=== PATIENT | male | born 1970 | race Caucasian/White ===

== ENCOUNTER 2017-10-26 16:08 | Emergency (ER) | payer SELFPAY ==
[~2017-10-26] VITALS: Ht 175.3 cm; Wt 86.4 kg
[2017-10-26 16:24] LABS: GLUCOSE,POINT OF CARE 270 MG/DL (70-110)
[2017-10-26 18:46] LABS: BASOPHILS % (AUTO) 0.8 % (0.0-2.0); EOSINOPHILS % (AUTO) 0.9 % (1.0-6.0); HEMATOCRIT 39.6 % (41-53); HEMOGLOBIN 13.5 g/dL (13.5-17.5); LYMPHOCYTES # (AUTO) 1.1 K/uL (1.0-4.8); LYMPHOCYTES % (AUTO) 12.8 % (22.0-44.0); MEAN CORPUSCULAR HEMOGLOBIN 28.6 pg (26.0-34.0); MEAN CORPUSCULAR VOLUME 84 fL (80-100); MONOCYTES # (AUTO) 0.6 K/uL (0.1-1.0); MONOCYTES % (AUTO) 6.3 % (2.0-9.0); NEUTROPHILS % (AUTO) 79.2 % (40.0-70.0); PLATELET COUNT (AUTO) 209 K/uL (150-450); RED BLOOD CELL COUNT(AUTO) 4.71 MIL/uL (4.50-5.90); RED CELL DISTRIBUTION WIDTH 14.1 % (11.5-14.5)
[2017-10-26 18:56] LABS: ANION GAP 8 mmol/L (8-16); CALCIUM, TOTAL 8.9 mg/dL (8.8-10.5); CARBON DIOXIDE 27 mmol/L (22-29); CHLORIDE 101 mmol/L (98-107); CREATININE 1.24 mg/dL (0.60-1.30); GLOMERULAR FILTR. RATE CALC > 60 mL/min (>60); GLUCOSE,RANDOM 309 mg/dL (70-110); POTASSIUM 4.5 mmol/L (3.5-5.1); SODIUM SERUM 136 mmol/L (136-145); UREA NITROGEN, BLOOD 20 mg/dL (7-18)
[2017-10-26 19:07] VITALS: BP 121/70
[2017-10-26 19:13] LABS: ALANINE AMINOTRANSFERASE 27 U/L (12-78); ALBUMIN 2.5 g/dL (3.4-5.0); ALKALINE PHOSPHATASE 103 U/L (46-116); C-REACTIVE PROTEIN QUANT 16.74 mg/dL (0.00-0.30)
[2017-10-26 20:17] LABS: ASPARTATE AMINOTRANSFERASE 14 U/L (15-37); BILIRUBIN,TOTAL 0.6 mg/dL (0.1-1.0)
[2017-10-26 20:19] LABS: ERYTHROCYTE SEDIMENTATION RATE 58 MM/HR (0-15)
== END 2017-10-26 20:51 | disposition home or self-care (01) ==
LOC: EMS 16:10
DX: L03.031 Cellulitis of right toe (principal); E11.9 Type 2 diabetes mellitus without complications
CPT/HCPCS: 85651; 86140; 99285

== ENCOUNTER 2022-01-31 17:37 | Inpatient (IN) | payer MEDICAID, OTHER ==
[~2022-01-31] VITALS: Ht 167.6 cm; Wt 107.5 kg
[~2022-01-31 17:37] MED LIST: CEPH-558 PO; CLIN300C58 PO; METF-1211 PO
[2022-01-31] MEDS ORDERED: INSULIN SQ (17:54)
[2022-01-31] MEDS ORDERED: KIDNEY MEDICATION PO (17:54)
[2022-01-31] MEDS ORDERED: BLOOD PRESSURE MED PO (17:54)
[2022-01-31 19:49] LABS: BASOPHILS % (AUTO) 1.2 % (0.0-2.0); EOSINOPHILS % (AUTO) 3.3 % (1.0-6.0); HEMATOCRIT 35.1 % (41-53); HEMOGLOBIN 11.4 g/dL (13.5-17.5); LYMPHOCYTES # (AUTO) 1.9 K/uL (1.0-4.8); LYMPHOCYTES % (AUTO) 20.2 % (22.0-44.0); MEAN CORPUSCULAR HEMOGLOBIN 28.7 pg (26.0-34.0); MEAN CORPUSCULAR HGB CONC 32.6 G/dL (31.0-37.0); MEAN CORPUSCULAR VOLUME 88 fL (80-100); MONOCYTES # (AUTO) 0.8 K/uL (0.1-1.0); MONOCYTES % (AUTO) 8.9 % (2.0-9.0); NEUTROPHILS # (AUTO) 6.1 K/uL (1.8-7.7); NEUTROPHILS % (AUTO) 66.4 % (40.0-70.0); PLATELET COUNT (AUTO) 293 K/uL (150-450); RED BLOOD CELL COUNT(AUTO) 3.99 MIL/uL (4.50-5.90); RED CELL DISTRIBUTION WIDTH 15.3 % (11.5-14.5)
[2022-01-31 19:58] LABS: CALCIUM, TOTAL 8.9 mg/dL (8.8-10.5); CREATININE 4.12 mg/dL (0.60-1.30); POTASSIUM 4.7 mmol/L (3.5-5.1)
[2022-01-31] MEDS ORDERED: 0.9% SODIUM CHLORIDE 10 ML SYRINGE IVP PRN (20:00)
[2022-01-31] MEDS ORDERED: ACETAMINOPHEN 325 MG TABLET PO PRN ×2 (20:00→20:15)
[2022-01-31] MEDS ORDERED: ONDANSETRON HCL 4 MG/2 ML VIAL IVP PRN ×2 (20:00→20:15)
[2022-01-31 20:04] LABS: BILIRUBIN,TOTAL 0.1 mg/dL (0.1-1.0); C-REACTIVE PROTEIN QUANT 3.6 mg/dL (0.00-0.30); TOTAL PROTEIN, SERUM 7.3 g/dL (6.4-8.2)
[2022-01-31 20:06] LABS: LACTIC ACID 0.9 mmol/L (0.4-2.0)
[2022-01-31] MEDS ORDERED: ZOLPIDEM TARTRATE 5 MG TABLET PO PRN (20:15)
[2022-01-31] MEDS ORDERED: DEXTROSE 50%-WATER 25 GM/50 ML SYRINGE IVP PRN (20:15)
[2022-01-31] MEDS ORDERED: SODIUM CHLORIDE 0.9% 1,000 ML IV ONE (20:15)
[2022-01-31] MEDS ORDERED: MAGNESIUM HYDROXIDE SUSPENSION 30 ML UDCUP PO PRN (20:15)
[2022-01-31] MEDS ORDERED: CloNIDine HCL 0.1 MG TABLET PO PRN (20:15)
[2022-01-31] MEDS ORDERED: BISACODYL 10 MG RECTAL RECTAL SUPPOSITORY PR PRN (20:15)
[2022-01-31] MEDS ORDERED: MORPHINE SULFATE 2 MG/ML SYRINGE IVP PRN (20:15)
[2022-01-31] MEDS ORDERED: VANCOMYCIN HCL 1.5 GM in DEXTROSE 5%-WATER 250 ML IV ONE (20:30)
[2022-01-31 20:53] LABS: ERYTHROCYTE SEDIMENTATION RATE 135 MM/HR (0-15)
[2022-01-31] MEDS: DOCUSATE SODIUM 100 MG CAPSULE PO SCH (21:00)
[2022-01-31] MEDS ORDERED: VANCOMYCIN HCL 1 GM in DEXTROSE 5%-WATER 250 ML IV PRN (21:30)
[2022-01-31 22:29] LABS: COVID AG,FIA SOURCE NASOPHARYNGEAL
[2022-02-01 06:43] LABS: BASOPHILS % (AUTO) 0.8 % (0.0-2.0); HEMATOCRIT 35.3 % (41-53); HEMOGLOBIN 11.3 g/dL (13.5-17.5); LYMPHOCYTES # (AUTO) 1.6 K/uL (1.0-4.8); LYMPHOCYTES % (AUTO) 18.7 % (22.0-44.0); MEAN CORPUSCULAR HEMOGLOBIN 28.3 pg (26.0-34.0); MEAN CORPUSCULAR HGB CONC 31.9 G/dL (31.0-37.0); MEAN CORPUSCULAR VOLUME 89 fL (80-100); MONOCYTES # (AUTO) 0.6 K/uL (0.1-1.0); MONOCYTES % (AUTO) 7.8 % (2.0-9.0); NEUTROPHILS # (AUTO) 5.8 K/uL (1.8-7.7); NEUTROPHILS % (AUTO) 69.7 % (40.0-70.0); PLATELET COUNT (AUTO) 265 K/uL (150-450); RED BLOOD CELL COUNT(AUTO) 3.99 MIL/uL (4.50-5.90)
[2022-02-01 06:59] LABS: CALCIUM, TOTAL 8.7 mg/dL (8.8-10.5); CREATININE 3.99 mg/dL (0.60-1.30); POTASSIUM 4.8 mmol/L (3.5-5.1)
[2022-02-01] MEDS: AmLODIPine BESYLATE 10 MG TABLET PO SCH (07:22)
[2022-02-01] MEDS: PANTOPRAZOLE SODIUM 40 MG DR TABLET PO SCH (07:24)
[2022-02-01] MEDS: HEPARIN SODIUM,PORCINE 5,000 UNITS/ML VIAL SQ SCH ×4 (07:25→23:44)
[2022-02-01] MEDS ORDERED: VANCOMYCIN HCL 1.25 GM in DEXTROSE 5%-WATER 250 ML IV ONE (08:00)
[2022-02-01] MEDS: DOCUSATE SODIUM 100 MG CAPSULE PO SCH ×2 (08:28→20:38)
[2022-02-01 10:24] VITALS: BP 148/78
[2022-02-01] MEDS: INSULIN LISPRO 100 UNITS/ML SQ PRN ×3 (12:07→20:47)
[2022-02-01] MEDS ORDERED: GLIP10TA9 PO (13:43)
[2022-02-01] MEDS ORDERED: INSU100I15 SQ (13:43)
[2022-02-01] MEDS ORDERED: LISI10TA24 PO (13:43)
[2022-02-01] MEDS ORDERED: ROSU20TA73 PO (13:43)
[2022-02-01] MEDS ORDERED: AMLO5TAB66 PO (13:43)
[2022-02-01] MEDS ORDERED: FERR325T23 PO (13:43)
[2022-02-01] MEDS ORDERED: INSU3INS3 SQ (13:43)
[2022-02-01] MEDS ORDERED: DAPA10TA PO (13:43)
[2022-02-01] MEDS ORDERED: DULA0.75 SQ (13:43)
[2022-02-01 15:49] VITALS: BP 127/63
[2022-02-01 16:51] LABS: GLUCOMETER DEV NAME(LOC) 6N.2B; GLUCOSE,POINT OF CARE 268 MG/DL (70-110)
[2022-02-01 19:41] LABS: GLUCOMETER DEV NAME(LOC) 6N.1; GLUCOSE,POINT OF CARE 164 MG/DL (70-110)
[2022-02-01 20:49] VITALS: BP 130/89
[2022-02-02 04:45] VITALS: BP 136/85
[2022-02-02 05:31] LABS: BASOPHILS % (AUTO) 0.9 % (0.0-2.0); EOSINOPHILS % (AUTO) 3.8 % (1.0-6.0); HEMATOCRIT 33.4 % (41-53); HEMOGLOBIN 10.6 g/dL (13.5-17.5); LYMPHOCYTES # (AUTO) 2.1 K/uL (1.0-4.8); LYMPHOCYTES % (AUTO) 31.9 % (22.0-44.0); MEAN CORPUSCULAR HEMOGLOBIN 27.8 pg (26.0-34.0); MEAN CORPUSCULAR HGB CONC 31.8 G/dL (31.0-37.0); MEAN CORPUSCULAR VOLUME 88 fL (80-100); MONOCYTES # (AUTO) 0.5 K/uL (0.1-1.0); MONOCYTES % (AUTO) 7.7 % (2.0-9.0); NEUTROPHILS # (AUTO) 3.6 K/uL (1.8-7.7); NEUTROPHILS % (AUTO) 55.7 % (40.0-70.0); PLATELET COUNT (AUTO) 275 K/uL (150-450); RED BLOOD CELL COUNT(AUTO) 3.82 MIL/uL (4.50-5.90); RED CELL DISTRIBUTION WIDTH 15.2 % (11.5-14.5)
[2022-02-02 05:38] LABS: CALCIUM, TOTAL 8.5 mg/dL (8.8-10.5); CREATININE 3.85 mg/dL (0.60-1.30); POTASSIUM 4.6 mmol/L (3.5-5.1)
[2022-02-02] MEDS: INSULIN LISPRO 100 UNITS/ML SQ PRN ×2 (06:19→20:08)
[2022-02-02 06:46] LABS: GLUCOMETER DEV NAME(LOC) 6N.2B; GLUCOSE,POINT OF CARE 228 MG/DL (70-110)
[2022-02-02 06:46] LABS: GLUCOMETER DEV NAME(LOC) 6N.2B; GLUCOSE,POINT OF CARE 145 MG/DL (70-110)
[2022-02-02 07:34] VITALS: BP 142/91
[2022-02-02] MEDS: HEPARIN SODIUM,PORCINE 5,000 UNITS/ML VIAL SQ SCH ×3 (08:00→23:53)
[2022-02-02] MEDS: DOCUSATE SODIUM 100 MG CAPSULE PO SCH ×2 (08:07→21:26)
[2022-02-02] MEDS: PANTOPRAZOLE SODIUM 40 MG DR TABLET PO SCH (08:08)
[2022-02-02] MEDS: AmLODIPine BESYLATE 10 MG TABLET PO SCH (08:08)
[2022-02-02 08:42] LABS: APPEARANCE,URINE CLEAR (CLEAR); BILIRUBIN,URINE NEGATIVE (NEGATIVE); GLUCOSE, URINE (UA) 300-500 mg/dL (NEGATIVE); KETONES,URINE NEGATIVE (NEGATIVE); LEUKOCYTE ESTERASE ,URINE NEGATIVE (NEGATIVE); NITRATE,URINE NEGATIVE (NEGATIVE); OCCULT BLOOD,URINE SMALL (NEGATIVE); PH,URINE 6.5 (5.0-8.0); PROTEIN,URINE 300-600,SEE CONFIRM mg/dL (NEGATIVE); SPECIFIC GRAVITIY, URINE 1.012 (1.003-1.030); UROBILINOGEN,URINE <=1.0 mg/dL (<=1.0)
[2022-02-02 09:14] LABS: SULFOSALICYLIC ACID,URINE 3+ (Negative)
[2022-02-02 09:15] LABS: BACTERIA,URINE None Seen /HPF (None Seen); FINE GRANULAR CASTS,URINE 0-2 /LPF (None Seen); HYALINE CASTS, URINE 0-2 /LPF (None Seen); WBC,URINE 0-2 /HPF (0-5)
[2022-02-02] MEDS ORDERED: LIDOCAINE/PF 1% 30 ML VIAL ONE (11:02)
[2022-02-02] MEDS ORDERED: BUPIVACAINE HCL/PF 0.5% 30 ML VIAL ONE (11:02)
[2022-02-02] MEDS ORDERED: SODIUM CHLORIDE 0.9% 1,000 ML IV ONE ×2 (12:15→13:00)
[2022-02-02] MEDS ORDERED: VANCOMYCIN HCL 1 GM/VIAL ONE (12:19)
[2022-02-02] MEDS ORDERED: SODIUM CL IRRIG SOLN BAG 3,000 ML IRRIG ONE (12:19)
[2022-02-02] MEDS ORDERED: SODIUM CHLORIDE 0.9% 1,000 ML ONE (12:42)
[2022-02-02 12:51] LABS: GLUCOMETER DEV NAME(LOC) 6N.2B; GLUCOSE,POINT OF CARE 165 MG/DL (70-110)
[2022-02-02 15:33] VITALS: BP 151/96
[2022-02-02 19:16] VITALS: BP 151/94
[2022-02-03 01:51] LABS: GLUCOMETER DEV NAME(LOC) 6N.2B; GLUCOSE,POINT OF CARE 131 MG/DL (70-110)
[2022-02-03 01:51] LABS: GLUCOMETER DEV NAME(LOC) 6N.2B; GLUCOSE,POINT OF CARE 236 MG/DL (70-110)
[2022-02-03 04:10] VITALS: BP 121/71
[2022-02-03] MEDS ORDERED: PROPOFOL 1% 20 ML VIAL IVP ONE (05:13)
[2022-02-03] MEDS ORDERED: FentaNYL CITRATE PF 100 MCG/2 ML VIAL IVP ONE (05:13)
[2022-02-03] MEDS ORDERED: ONDANSETRON HCL 4 MG/2 ML VIAL IVP ONE (05:13)
[2022-02-03] MEDS ORDERED: MIDAZOLAM HCL 2 MG/2 ML VIAL IVP ONE (05:13)
[2022-02-03] MEDS ORDERED: LIDOCAINE/PF 2% 5 ML VIAL IM ONE (05:13)
[2022-02-03 05:59] LABS: CALCIUM, TOTAL 8.4 mg/dL (8.8-10.5); CREATININE 3.63 mg/dL (0.60-1.30); POTASSIUM 4.8 mmol/L (3.5-5.1)
[2022-02-03 06:21] LABS: GLUCOMETER DEV NAME(LOC) 6N.2B; GLUCOSE,POINT OF CARE 116 MG/DL (70-110)
[2022-02-03 07:35] VITALS: BP 154/84
[2022-02-03] MEDS ORDERED: VANCOMYCIN 1GM/WATER(PEG/NADA) 200 ML IV ONE (08:00)
[2022-02-03] MEDS: DOCUSATE SODIUM 100 MG CAPSULE PO SCH ×2 (08:04→21:00)
[2022-02-03] MEDS: PANTOPRAZOLE SODIUM 40 MG DR TABLET PO SCH (08:04)
[2022-02-03] MEDS: AmLODIPine BESYLATE 10 MG TABLET PO SCH (08:04)
[2022-02-03] MEDS: HEPARIN SODIUM,PORCINE 5,000 UNITS/ML VIAL SQ SCH ×3 (08:04→23:34)
[2022-02-03] MEDS: INSULIN LISPRO 100 UNITS/ML SQ PRN ×3 (11:54→20:15)
[2022-02-03 13:21] LABS: GLUCOMETER DEV NAME(LOC) 6N.2B; GLUCOSE,POINT OF CARE 198 MG/DL (70-110)
[2022-02-03 21:06] LABS: GLUCOMETER DEV NAME(LOC) 6N.1; GLUCOSE,POINT OF CARE 189 MG/DL (70-110)
[2022-02-03 21:06] LABS: GLUCOMETER DEV NAME(LOC) 6N.1; GLUCOSE,POINT OF CARE 212 MG/DL (70-110)
[2022-02-04 06:52] LABS: CALCIUM, TOTAL 8.6 mg/dL (8.8-10.5); CREATININE 3.94 mg/dL (0.60-1.30); POTASSIUM 4.5 mmol/L (3.5-5.1)
[2022-02-04 07:11] LABS: GLUCOMETER DEV NAME(LOC) 6N.2B; GLUCOSE,POINT OF CARE 135 MG/DL (70-110)
[2022-02-04 07:23] VITALS: BP 136/82
[2022-02-04] MEDS: PANTOPRAZOLE SODIUM 40 MG DR TABLET PO SCH (09:14)
[2022-02-04] MEDS: DOCUSATE SODIUM 100 MG CAPSULE PO SCH ×2 (09:14→20:33)
[2022-02-04] MEDS: AmLODIPine BESYLATE 10 MG TABLET PO SCH (09:14)
[2022-02-04] MEDS: HEPARIN SODIUM,PORCINE 5,000 UNITS/ML VIAL SQ SCH ×2 (09:14→15:27)
[2022-02-04] MEDS: LEVOFLOXACIN 250 MG TABLET PO SCH (09:14)
[2022-02-04] MEDS: INSULIN LISPRO 100 UNITS/ML SQ PRN ×3 (12:17→20:36)
[2022-02-04 15:11] LABS: GLUCOMETER DEV NAME(LOC) 6N.2B; GLUCOSE,POINT OF CARE 241 MG/DL (70-110)
[2022-02-04 15:23] VITALS: BP 141/84
[2022-02-04 19:37] VITALS: BP 138/86
[2022-02-04 20:11] LABS: GLUCOMETER DEV NAME(LOC) 6N.1; GLUCOSE,POINT OF CARE 199 MG/DL (70-110)
[2022-02-04] MEDS: HYDROCODONE/ACETAMINOPHEN 5-325 MG TABLET PO PRN (20:33)
[2022-02-04 21:41] LABS: GLUCOMETER DEV NAME(LOC) 6N.1; GLUCOSE,POINT OF CARE 183 MG/DL (70-110)
[2022-02-05] MEDS: HEPARIN SODIUM,PORCINE 5,000 UNITS/ML VIAL SQ SCH ×3 (00:09→16:45)
[2022-02-05 03:47] VITALS: BP 130/82
[2022-02-05] MEDS: INSULIN LISPRO 100 UNITS/ML SQ PRN ×4 (05:49→20:24)
[2022-02-05 06:48] LABS: CALCIUM, TOTAL 8.7 mg/dL (8.8-10.5); CREATININE 4.03 mg/dL (0.60-1.30); POTASSIUM 4.8 mmol/L (3.5-5.1); VANCOMYCIN,RANDOM 17.2 mcg/mL (25.0-50.0)
[2022-02-05 07:46] LABS: GLUCOMETER DEV NAME(LOC) 6N.1; GLUCOSE,POINT OF CARE 145 MG/DL (70-110)
[2022-02-05 07:55] VITALS: BP 139/81
[2022-02-05] MEDS: LEVOFLOXACIN 250 MG TABLET PO SCH (08:12)
[2022-02-05] MEDS: PANTOPRAZOLE SODIUM 40 MG DR TABLET PO SCH (08:13)
[2022-02-05] MEDS: AmLODIPine BESYLATE 10 MG TABLET PO SCH (08:13)
[2022-02-05] MEDS: DOCUSATE SODIUM 100 MG CAPSULE PO SCH ×2 (08:13→20:20)
[2022-02-05] MEDS: HYDROCODONE/ACETAMINOPHEN 5-325 MG TABLET PO PRN (08:14)
[2022-02-05] MEDS ORDERED: VANCOMYCIN 1GM/WATER(PEG/NADA) 200 ML IV ONE (11:00)
[2022-02-05] MEDS: DEXTRAN 70 0.1%/HYPROMELL 0.3% 0.9 ML OPHTHALMIC SOLUTION [PF] OU SCH ×2 (13:56→20:20)
[2022-02-05 14:31] LABS: GLUCOMETER DEV NAME(LOC) 6N.2B; GLUCOSE,POINT OF CARE 206 MG/DL (70-110)
[2022-02-05 15:46] VITALS: BP 136/84
[2022-02-05 19:21] LABS: GLUCOMETER DEV NAME(LOC) 6N.2B; GLUCOSE,POINT OF CARE 204 MG/DL (70-110)
[2022-02-05 20:16] VITALS: BP 120/87
[2022-02-05 23:36] LABS: GLUCOMETER DEV NAME(LOC) 6N.2B; GLUCOSE,POINT OF CARE 200 MG/DL (70-110)
[2022-02-06] MEDS: HEPARIN SODIUM,PORCINE 5,000 UNITS/ML VIAL SQ SCH ×2 (00:13→09:06)
[2022-02-06 05:25] VITALS: BP 145/85
[2022-02-06] MEDS: INSULIN LISPRO 100 UNITS/ML SQ PRN ×2 (05:33→12:19)
[2022-02-06 06:02] LABS: CALCIUM, TOTAL 8.6 mg/dL (8.8-10.5); CREATININE 3.92 mg/dL (0.60-1.30); POTASSIUM 4.9 mmol/L (3.5-5.1)
[2022-02-06 07:26] LABS: GLUCOMETER DEV NAME(LOC) 6N.1; GLUCOSE,POINT OF CARE 186 MG/DL (70-110)
[2022-02-06 08:00] VITALS: BP 106/60
[2022-02-06] MEDS ORDERED: MULTIVITAMINS WITH MINERALS, THERAPEUTIC TABLET PO SCH (09:00)
[2022-02-06] MEDS: LEVOFLOXACIN 250 MG TABLET PO SCH (09:05)
[2022-02-06] MEDS: PANTOPRAZOLE SODIUM 40 MG DR TABLET PO SCH (09:06)
[2022-02-06] MEDS: DEXTRAN 70 0.1%/HYPROMELL 0.3% 0.9 ML OPHTHALMIC SOLUTION [PF] OU SCH (09:06)
[2022-02-06] MEDS: DOCUSATE SODIUM 100 MG CAPSULE PO SCH (09:06)
[2022-02-06] MEDS: AmLODIPine BESYLATE 10 MG TABLET PO SCH (09:06)
[2022-02-06] MEDS ORDERED: CLIN300C58 PO (09:43)
[2022-02-06 19:46] LABS: GLUCOMETER DEV NAME(LOC) 6N.2B; GLUCOSE,POINT OF CARE 231 MG/DL (70-110)
[2022-02-07] MEDS ORDERED: VANCOMYCIN 1GM/WATER(PEG/NADA) 200 ML IV SCH (08:00)
== END 2022-02-06 16:20 | disposition home health service (06) | DRG 380 ==
LOC: EMS 18:01 → 6N 02-01 09:48 → EMS 02-01 10:00
PROVIDERS: ADMIT Internal Medicine; ATTEND Internal Medicine
PROC: 0Y9M0ZZ Drainage of Right Foot, Open Approach (ICD-10-PCS; principal; 2022-02-02 13:55)
DX: E11.621 Type 2 diabetes mellitus with foot ulcer (principal); L97.519 Non-pressure chronic ulcer of other part of right foot with unspecified severity; N17.0 Acute kidney failure with tubular necrosis; L03.115 Cellulitis of right lower limb; D63.1 Anemia in chronic kidney disease; L02.611 Cutaneous abscess of right foot; E11.22 Type 2 diabetes mellitus with diabetic chronic kidney disease; E11.51 Type 2 diabetes mellitus with diabetic peripheral angiopathy without gangrene; I12.9 Hypertensive chronic kidney disease with stage 1 through stage 4 chronic kidney disease, or unspecified chronic kidney disease; N18.4 Chronic kidney disease, stage 4 (severe); Z20.822 Contact with and (suspected) exposure to COVID-19; E11.65 Type 2 diabetes mellitus with hyperglycemia; E66.01 Morbid (severe) obesity due to excess calories; Z89.422 Acquired absence of other left toe(s); Z79.84 Long term (current) use of oral hypoglycemic drugs; Z79.899 Other long term (current) drug therapy; Z68.38 Body mass index [BMI] 38.0-38.9, adult
CPT/HCPCS: 71045; 80048; 80053; 80202; 81001; 81002; 82962; 83605; 83690; 84484; 85025; 85651; 86140; 87040; 87070; 87081; 87101; 87186; 87205; 88304; 93005; 97116; 97162; 99285; J1644; J2250; J2270; J2405; J2704; J3010; J3370; J3490; J7030; J7060; Q9967; 36415-L1; 36415-TC; Z7610